=== PATIENT | female | born 1950 | race Caucasian/White ===

== ENCOUNTER 2017-05-18 10:28 | Emergency (ER) | payer OTHER ==
[2017-05-18] MEDS: CLINDAMYCIN 300 MG INJ IM (12:51)
== END 2017-05-18 12:51 | disposition home or self-care (01) ==
LOC: FTE 10:28
DX: L03.211 Cellulitis of face (principal); I10 Essential (primary) hypertension
CPT/HCPCS: 96372; 99284-25

== ENCOUNTER 2017-10-14 14:44 | Emergency (ER) | payer SELFPAY, OTHER | END 2017-10-14 17:31 | disposition left against medical advice (07) | LOC: E/R 14:44 | DX: Z53.21 Procedure and treatment not carried out due to patient leaving prior to being seen by health care provider (principal) ==

== ENCOUNTER 2018-04-30 15:32 | Emergency (ER) | payer SELFPAY, OTHER | END 2018-04-30 18:26 | disposition left against medical advice (07) | LOC: FTE 15:32 | DX: Z53.21 Procedure and treatment not carried out due to patient leaving prior to being seen by health care provider (principal) ==

== ENCOUNTER 2018-05-04 06:19 | Day surgery (SDC) | payer MEDICARE, OTHER ==
[2018-05-04] MEDS ORDERED: FENTAnyl 50 MCG/ML VIAL IV (08:00)
[2018-05-04] MEDS ORDERED: ALBUTEROL 0.083% (NEB) 2.5 MG/3 ML AMP HHN (08:00)
[2018-05-04] MEDS ORDERED: ACETAMINOPHEN 500 MG TAB PO (08:00)
[2018-05-04] MEDS ORDERED: ONDANSETRON 4 MG INJ IV (08:00)
[2018-05-04] MEDS ORDERED: PROPOFOL 20 ML ×2 (08:30→09:23)
[2018-05-04] MEDS ORDERED: FENTAnyl 50 MCG/ML VIAL (08:30)
== END 2018-05-04 11:45 | disposition home or self-care (01) ==
LOC: GIL 06:19
DX: Z86.010 Personal history of colon polyps (principal); K64.8 Other hemorrhoids; K64.4 Residual hemorrhoidal skin tags; K57.30 Diverticulosis of large intestine without perforation or abscess without bleeding; K29.50 Unspecified chronic gastritis without bleeding; K22.10 Ulcer of esophagus without bleeding
CPT/HCPCS: 43239; 88305; 88312; 88313

== ENCOUNTER 2018-06-29 09:19 | Observation (INO) | payer MEDICARE, OTHER ==
[2018-06-29 12:23] LABS: ADD MAN DIFF? NO
[2018-06-29 12:25] LABS: URINE PH (Dip) POC 6.5 (5.0-8.5)
[2018-06-29 12:25] LABS: WHITE BLOOD COUNT 9.3 10^3/ul (4.8-10.8)
[2018-06-29 12:25] LABS: BASOPHIL # 0.1 10^3/ul (0.0-0.1); BASOPHILS % 0.6 % (0.0-2.0); EOSINOPHILS # 0.2 10^3/ul (0.0-0.5); EOSINOPHILS % 1.7 % (0.0-7.0); HEMOGLOBIN 13.2 g/dl (12.0-16.0); LYMPHOCYTES # 2.1 10^3/ul (0.8-2.9); LYMPHOCYTES % 22.9 % (15.0-51.0); MEAN CORPUSCULAR HEMOGLOBIN 28.1 pg (29.0-33.0); MEAN CORPUSCULAR VOLUME 85.1 fl (82.0-101.0); MEAN PLATELET VOLUME 9.8 fl (7.4-10.4); MONOCYTE # 0.8 10^3/ul (0.3-0.9); MONOCYTES % 8.1 % (0.0-11.0); NEUTROPHIL # 6.1 10^3/ul (1.6-7.5); NEUTROPHILS % 66.4 % (39.0-77.0); PLATELET COUNT 349 10^3/UL (140-415); RED CELL DISTRIBUTION WIDTH 13.7 % (11.5-14.5); URINE BLOOD (Dip) POC 2+ (NEGATIVE); URINE GLUCOSE (Dip) POC Negative (NEGATIVE); URINE KETONES (Dip) POC Negative (NEGATIVE); URINE LEUKOCYTE EST (Dip) POC 3+ (NEGATIVE); URINE NITRITE (Dip) POC Negative (NEGATIVE); URINE TOTAL PROTEIN POC Trace (NEGATIVE)
[2018-06-29 12:45] LABS: ALANINE AMINOTRANSFERASE 17 IU/L (13-69); ALBUMIN 4.5 g/dl (3.3-4.9); ALBUMIN/GLOBULIN RATIO 1.28; ALKALINE PHOSPHATASE 110 IU/L (42-121); ANION GAP 9 (5-13); ASPARTATE AMINO TRANSFERASE 27 IU/L (15-46); BILIRUBIN,INDIRECT 0.3 mg/dl (0-1.1); BILIRUBIN,TOTAL 0.3 mg/dl (0.2-1.3); BLOOD UREA NITROGEN 15 mg/dl (7-20); CALCIUM 10.2 mg/dl (8.4-10.2); CARBON DIOXIDE 28 mmol/L (21-31); CHLORIDE 105 mmol/L (97-110); CREATININE 0.84 mg/dl (0.44-1.00); Estimated GFR > 60 mL/min (>60); GLUCOSE 96 mg/dl (70-220); LIPASE 146 U/L (23-300); POTASSIUM 4.8 mmol/L (3.5-5.1); SODIUM 142 mmol/L (135-144)
[2018-06-29 12:56] LABS: TROPONIN-I < 0.012 ng/ml (0.000-0.120)
[2018-06-29] MEDS: ASPIRIN 81 MG TAB PO (13:39)
[2018-06-29] MEDS: NITROGLYCERIN 2% 1 GM OINT PKT TD (13:39)
[2018-06-29] MEDS: CIPROFLOXACIN 400MG/D5W 200 ML IVPB (13:39)
[2018-06-29] MEDS: ONDANSETRON 4 MG INJ IV ×2 (16:23→21:09)
[2018-06-29] MEDS ORDERED: NACL 0.9% 3 ML SYG IV (17:30)
[2018-06-29] MEDS ORDERED: RANITIDINE 150 MG TAB PO (17:30)
[2018-06-29] MEDS ORDERED: DOCUSATE SODIUM 100 MG CAP PO (17:30)
[2018-06-29] MEDS ORDERED: morphine 2 MG INJ IV (17:30)
[2018-06-29] MEDS: SUCRALFATE 1 GM TAB PO (21:00)
[2018-06-29] MEDS: ZOLPIDEM 5 MG TAB PO (21:09)
[2018-06-29] MEDS: HYDROCODONE/APAP (5/325) TAB PO (21:25)
[2018-06-30] MEDS: ACETAMINOPHEN 325 MG TAB PO (01:34)
[2018-06-30] MEDS: HYDROCODONE/APAP (5/325) TAB PO (05:47)
[2018-06-30] MEDS: PANTOPRAZOLE (EC) 40 MG TAB PO ×2 (05:47→21:02)
[2018-06-30 06:31] LABS: ADD MAN DIFF? NO
[2018-06-30 06:34] LABS: WHITE BLOOD COUNT 9.9 10^3/ul (4.8-10.8)
[2018-06-30 06:34] LABS: BASOPHIL # 0.1 10^3/ul (0.0-0.1); BASOPHILS % 0.6 % (0.0-2.0); EOSINOPHILS # 0.3 10^3/ul (0.0-0.5); EOSINOPHILS % 2.7 % (0.0-7.0); HEMATOCRIT 37.8 % (37.0-47.0); HEMOGLOBIN 12.4 g/dl (12.0-16.0); LYMPHOCYTES # 2.3 10^3/ul (0.8-2.9); LYMPHOCYTES % 22.7 % (15.0-51.0); MEAN CORPUSCULAR HEMOGLOBIN 27.8 pg (29.0-33.0); MEAN CORPUSCULAR HGB CONC 32.8 g/dl (32.0-37.0); MEAN CORPUSCULAR VOLUME 84.8 fl (82.0-101.0); MEAN PLATELET VOLUME 10.1 fl (7.4-10.4); MONOCYTE # 0.8 10^3/ul (0.3-0.9); MONOCYTES % 7.7 % (0.0-11.0); NEUTROPHIL # 6.6 10^3/ul (1.6-7.5); PLATELET COUNT 324 10^3/UL (140-415); RED BLOOD COUNT 4.46 10^6/ul (4.20-5.40); RED CELL DISTRIBUTION WIDTH 13.8 % (11.5-14.5)
[2018-06-30 07:11] LABS: ANION GAP 8 (5-13); BLOOD UREA NITROGEN 19 mg/dl (7-20); CALCIUM 9.6 mg/dl (8.4-10.2); CARBON DIOXIDE 28 mmol/L (21-31); CHLORIDE 102 mmol/L (97-110); CHOL/HDL RATIO 4.4 RATIO; CHOLESTEROL 212 mg/dl (100-200); CREATININE 0.93 mg/dl (0.44-1.00); Estimated GFR > 60 mL/min (>60); GLUCOSE 83 mg/dl (70-220); HDL CHOLESTEROL 48 mg/dl (35-98); LDL CHOLESTEROL,CALCULATED 133 mg/dl; MAGNESIUM 2.2 mg/dl (1.7-2.5); POTASSIUM 5.1 mmol/L (3.5-5.1); SODIUM 138 mmol/L (135-144); TRIGLYCERIDES 155 mg/dl (0-149)
[2018-06-30 07:16] LABS: TROPONIN-I < 0.012 ng/ml (0.000-0.120)
[2018-06-30 08:20] LABS: HEMOGLOBIN A1C 5.5 % (0-5.9)
[2018-06-30] MEDS: DILTIAZEM (CD) 180 MG CAP PO (08:22)
[2018-06-30] MEDS: SUCRALFATE 1 GM TAB PO (08:22)
[2018-06-30] MEDS ORDERED: BISMUTH SUBSALICYLATE 120 ML BTL PO (13:00)
[2018-06-30] MEDS: SUCRALFATE (100 MG/ML) 10ML CUP PO ×3 (13:10→21:03)
[2018-06-30] MEDS: HYOSCYAMINE 0.125 MG SUBL TAB PO ×3 (13:13→21:03)
[2018-06-30] MEDS: BISMUTH SUBSALICYLATE 240 ML BTL PO ×2 (17:18→21:02)
[2018-06-30] MEDS: metroNIDAZOLE 250 MG TAB PO (17:18)
[2018-06-30] MEDS: NITROGLYCERIN (SL) 0.4 MG TAB SL (18:46)
[2018-06-30] MEDS: DOXYCYCLINE 100 MG TAB PO (21:02)
[2018-07-01] MEDS: metroNIDAZOLE 250 MG TAB PO ×3 (01:13→13:01)
[2018-07-01] MEDS: HYOSCYAMINE 0.125 MG SUBL TAB PO ×4 (01:13→13:01)
[2018-07-01] MEDS: DILTIAZEM (CD) 180 MG CAP PO (08:45)
[2018-07-01] MEDS: SUCRALFATE (100 MG/ML) 10ML CUP PO (08:46)
[2018-07-01] MEDS: PANTOPRAZOLE (EC) 40 MG TAB PO (08:46)
[2018-07-01] MEDS: DOXYCYCLINE 100 MG TAB PO (08:46)
[2018-07-01] MEDS: BISMUTH SUBSALICYLATE 240 ML BTL PO ×2 (08:51→13:01)
[2018-07-01] MEDS: ONDANSETRON 4 MG INJ IV (08:57)
[2018-07-01 10:58] LABS: TROPONIN-I < 0.012 ng/ml (0.000-0.120)
[2018-07-01] MEDS: POLYETHYLENE GLYCOL 17 GM PACKET PO (13:06)
== END 2018-07-01 15:07 | disposition home or self-care (01) ==
LOC: E/R 09:19 → 2NE 06-30 22:27 → 6WM 13:19
DX: R10.9 Unspecified abdominal pain (principal); R07.89 Other chest pain; I10 Essential (primary) hypertension; I25.10 Atherosclerotic heart disease of native coronary artery without angina pectoris; J45.909 Unspecified asthma, uncomplicated; E78.5 Hyperlipidemia, unspecified; Z86.73 Personal history of transient ischemic attack (TIA), and cerebral infarction without residual deficits; Z98.51 Tubal ligation status; Z79.82 Long term (current) use of aspirin; Z98.61 Coronary angioplasty status
CPT/HCPCS: 36415; 71045; 74176; 80048; 80053; 80061; 81003; 83036; 83690; 83735; 84100; 84484; 85025; 93005; 99217; 99285-25; G0378